=== PATIENT | male | born 1965 | race Caucasian/White ===

== ENCOUNTER 2017-05-16 09:53 | Emergency (ER) | payer BC ==
[~2017-05-16] VITALS: Ht 177.8 cm; Wt 86.0 kg
[2017-05-16 10:00] VITALS: BP 99/54; PULSE 82; RESP 17; TEMP 98.8; O2SAT 93
[2017-05-16] MEDS ORDERED: SODIUM CHLOR 0.9% 1000 ML INJ 1,000 ML IV ONE (10:11)
[2017-05-16] MEDS ORDERED: ONDANSETRON HCL 4 MG/2 ML VIAL IVP ONE (10:15)
[2017-05-16] MEDS ORDERED: SODIUM CHLORIDE 0.9% FLUSH 10 ML FLUSH IVF PRN (10:15)
--- NOTE | 2017-05-16 10:30 | RADRPT ---
EXAM DATE/TIME: 05/16/2017 10:14 [facility] COMPARISON: No previous studies available for comparison. INDICATIONS : Syncope at work MEDICAL HISTORY : None. SURGICAL HISTORY : None. ENCOUNTER: Initial ACUITY: 2 days PAIN SCORE: 2/10 LOCATION: Bilateral chest FINDINGS: Slight prominence of the right perihilar region likely due to overlapping vascular shadows. Cardiomed iastinal contours within normal limits. Bony thorax is intact. CONCLUSION: 1. Mild right perihilar prominence likely due to overlapping pulmonary vessels. This can be further e valuated on already requested chest CT exam. Mk Batista MD on May 16, 2017 at 10:26 Board Certified Radiologist. This report was verified electronically.
[2017-05-16 11:24] LABS: AUTOMATED NEUTROPHIL # 5.9 TH/MM3 (1.8-7.7); BASOPHIL % 0.1 % (0.0-2.0); HEMATOCRIT 31.6 % (39.0-51.0); HEMOGLOBIN 10.3 GM/DL (13.0-17.0); LYMPH % 7.3 % (9.0-44.0); LYMPHOCYTE # 0.5 TH/MM3 (1.0-4.8); MEAN CORPUSCULAR HEMOGLOBIN 19.9 PG (27.0-34.0); MEAN CORPUSCULAR HGB CONC 32.5 % (32.0-36.0); MEAN PLATELET VOLUME 9.1 FL (7.0-11.0); MONO % 6.8 % (0.0-8.0); MONOCYTE # 0.5 TH/MM3 (0-0.9); NEUT % 85.8 % (16.0-70.0); PLATELET COUNT 148 TH/MM3 (150-450); RED BLOOD COUNT 5.18 MIL/MM3 (4.50-5.90); RED CELL DISTRIBUTION WIDTH 15.6 % (11.6-17.2); WHITE BLOOD COUNT 6.8 TH/MM3 (4.0-11.0)
[2017-05-16] MEDS ORDERED: IOHEXOL 350 MG/ML 10 ML VIAL (for RAD DIAG) IVCONTRAST ONE (11:28)
--- NOTE | 2017-05-16 11:31 | RADRPT ---
EXAM DATE/TIME: 05/16/2017 11:08 [facility] COMPARISON: No previous studies available for comparison. INDICATIONS : Dizziness. RADIATION DOSE: 56.35 CTDIvol (mGy) ; Tabletop CT Head MEDICAL HISTORY : None SURGICAL HISTORY : Tonsillectomy. ENCOUNTER: Initial ACUITY: 1 day PAIN SCALE: 0/10 LOCATION: cranial TECHNIQUE: Multiple contiguous axial images were obtained of the head. Using automated exposure control and adj ustment of the mA and/or kV according to patient size, radiation dose was kept as low as reasonably a chievable to obtain optimal diagnostic quality images. DICOM format image data is available electro nically for review and comparison. FINDINGS: CEREBRUM: The ventricles are normal for age. No evidence of midline shift, mass lesion, hemorrhage or acute in farction. No extra-axial fluid collections are seen. POSTERIOR FOSSA: The cerebellum and brainstem are intact. The 4th ventricle is midline. The cerebellopontine angle i s unremarkable. EXTRACRANIAL: The visualized portion of the orbits is intact. There is a small air-fluid level in left maxillary si nus. SKULL: The calvaria is intact. No evidence of skull fracture. CONCLUSION: 1. No acute hemorrhage or mass effect. 2. Small air-fluid level in the left maxillary sinus which could indicate acute sinusitis. Kai Beth MD on May 16, 2017 at 11:28 Board Certified Radiologist. This report was verified electronically.
[2017-05-16 11:33] LABS: BICARBONATE 26.3 MEQ/L (21.0-32.0); BLOOD UREA NITROGEN 22 MG/DL (7-18); CALCIUM 7.9 MG/DL (8.5-10.1); CHLORIDE 100 MEQ/L (98-107); CREATININE 1.41 MG/DL (0.60-1.30); GLOMERULAR FILTRATION RATE 52 ML/MIN (>89); GLUCOSE,RANDOM 133 MG/DL (74-106); SODIUM (NA) 134 MEQ/L (136-145)
[2017-05-16 11:36] LABS: TROPONIN I LESS THAN 0.02 NG/ML (0.02-0.05)
--- NOTE | 2017-05-16 11:45 | RADRPT ---
EXAM DATE/TIME: 05/16/2017 11:07 [facility] COMPARISON: No previous studies available for comparison. INDICATIONS : Near syncopal episode. Cough. IV CONTRAST: 70 cc Omnipaque 350 (iohexol) IV RADIATION DOSE: 10.44 CTDIvol (mGy) MEDICAL HISTORY : None SURGICAL HISTORY : Tonsillectomy. ENCOUNTER: Initial ACUITY: 1 day PAIN SCALE: 0/10 LOCATION: Bilateral chest TECHNIQUE: Volumetric scanning of the chest was performed using a pulmonary embolism protocol MIP images were re constructed. Using automated exposure control and adjustment of the mA and/or kV according to patien t size, radiation dose was kept as low as reasonably achievable to obtain optimal diagnostic quality images. DICOM format image data is available electronically for review and comparison. Follow-up recommendations for detected pulmonary nodules are based at a minimum on nodule size and pa tient risk factors according to Fleischner Society Guidelines. FINDINGS: PULMONARY ARTERIES: No filling defects are seen in the pulmonary arteries through the segmental level. LUNGS: Bibasilar interstitial changes may represent some atelectasis. There are punctate, subcentimeter 3 mm nodules also in the right base. No confluent infiltrate. PLEURAE: There is no pleural thickening or pleural effusion. MEDIASTINUM: There is good visualization of the great vessels of the middle mediastinum. Bihilar prominence lymph nodes measuring up to 1.9 cm in diameter. Prominent pretracheal lymph nodes measuring upwards of 2.7 cm in diameter. Markedly dilated thoracic esophagus. Anatomic variant of the aortic arch with the lef t vertebral emanating directly from the arch. MUSCULOSKELETAL: Within normal limits for patient age. MISCELLANEOUS: The visualized upper abdominal organs demonstrate no acute abnormality. CONCLUSION: 1. No pulmonary embolus. 2. Bibasilar interstitial changes are probably atelectatic in nature although they are nonspecific 3- 4 mm nodules in the right base. 3. In addition, marked dilation of the esophageal lumen throughout its course. Diagnostic considerati ons include esophageal achalasia versus GE junction mass. If the latter is present, the nodules at th e lung base could represent metastatic disease. Endoscopy may be useful for further characterization. 4. Bihilar and prevascular prominent lymph nodes. Again, nonspecific. Diagnostic considerations inclu de lymphoma, metastatic disease or inflammatory processes such as sarcoid/reactive adenopathy. Outpat ient CT scan of the abdomen and pelvis can be considered to evaluate for additional areas of abnormal adenopathy. Manuelito Younger MD on May 16, 2017 at 11:31 Board Certified Radiologist. This report was verified electronically.
[2017-05-16 11:59] LABS: BANDS 35 % (0-6); LYMPHOCYTES 6 % (9-44); METAMYELOCYTES 3 % (0-1); MONOCYTES 3 % (0-8); NEUTROPHIL # MANUAL DIFF 6.2 TH/MM3 (1.8-7.7); POLYS (SEG NEUTROPHILS) 53 % (16-70)
[2017-05-16 12:00] LABS: ACANTHOCYTES OCC (NORMAL); OVALOCYTES 1+ (NORMAL); TEARDROP RBCS 1+ (NORMAL)
[2017-05-16 12:03] VITALS: BP 116/56; PULSE 77; RESP 17; O2SAT 96
[2017-05-16 12:04] VITALS: O2SAT 96
[2017-05-16 12:06] VITALS: BP_SYST 113; BP_SYST 116; BP_SYST 117; BP_DIAS 56; BP_DIAS 57; BP_DIAS 59
[2017-05-16] MEDS ORDERED: AZIT250T3 PO ×2 (12:38→16:36)
--- NOTE | 2017-05-16 12:39 | PD ---
HPI Chief Complaint: Syncope/Near-Syncope Time Seen by Provider: 10:11 Travel History International Travel<30 days: No Contact w/Intl Traveler<30days: No Traveled to known affect area: No History of Present Illness HPI In the ER the patient states he feels 52-year-old male arrives to the ER by EMS. 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 Prior to the time of loss of consciousness the patient's mentation and memory were intact and he reports no palpitations and dizziness lightheadedness chest pain or shortness of breath. Upon waking up he felt diaphoretic. Bystanders deny any seizure-like activity. The patient reports the past several days he's had cough congestion and URI symptoms. He denies any drug alcohol abuse. He denies any significant past medical history however has not been following with primary care provider due to insurance however insurance was just recently reinstated. PFSH Past Surgical History Tonsillectomy: Yes Social History Alcohol Use: No Tobacco Use: No Substance Use: No Allergies-Medications (Allergen,Severity, Reaction): Coded Allergies: Penicillins (Verified Allergy, Unknown, 05/16/17) Reported Meds & Prescriptions Reported Meds & Active Scripts Active Azithromycin 250 Mg Tab 250 Mg PO DIRECTED Take 2 tabs (500 mg) on day 1 then 1 tab daily x 4 days. Review of Systems Except as stated in HPI: all other systems reviewed are Neg General / Constitutional: Positive: Fever Respiratory: Positive: Cough Physical Exam Narrative GENERAL: 52-year-old male well-nourished well-developed speaking full sentences SKIN: Warm and dry. HEAD: Atraumatic. Normocephalic. EYES: Pupils equal and round. No scleral icterus. No injection or drainage. ENT: No nasal bleeding or discharge. Mucous membranes pink and moist. NECK: Trachea midline. No JVD. CARDIOVASCULAR: Regular rate and rhythm. RESPIRATORY: Occasional coarse breath sounds at the bases. GASTROINTESTINAL: Abdomen soft, non-tender, nondistended. Hepatic and splenic margins not palpable. MUSCULOSKELETAL: Extremities without clubbing, cyanosis, or edema. No obvious deformities. NEUROLOGICAL: Awake and alert. No obvious cranial nerve deficits. Motor grossly within normal limits. Five out of 5 muscle strength in the arms and legs. Normal speech. PSYCHIATRIC: Appropriate mood and affect; insight and judgment normal. Data Data Last Documented VS Vital Signs Date Time Temp Pulse Resp B/P (MAP) Pulse Ox O2 Delivery O2 Flow Rate FiO2 05/16/17 12:06 79 116/56 (76) 77 117/59 (78) 80 113/57 (75) 05/16/17 12:04 96 Room Air 05/16/17 12:03 17 05/16/17 10:00 98.8 VS reviewed Orders Orders Electrocardiogram (05/16/17 10:11) Basic Metabolic Panel (Bmp) (05/16/17 10:11) Complete Blood Count With Diff (05/16/17 10:11) Magnesium (Mg) (05/16/17 10:11) Ckmb (Isoenzyme) Profile (05/16/17 10:11) Troponin I (05/16/17 10:11) Chest, Single Ap (05/16/17 10:11) Ct Brain W/O Iv Contrast(Rout) (05/16/17 10:11) Ecg Monitoring (05/16/17 10:11) Iv Access Insert/Monitor (05/16/17 10:11) Oximetry (05/16/17 10:11) Oxygen Administration (05/16/17 10:11) Ondansetron Inj (Zofran Inj) (05/16/17 10:15) Sodium Chloride 0.9% Flush (Ns Flush) (05/16/17 10:15) Sodium Chlor 0.9% 1000 Ml Inj (Ns 1000 M (05/16/17 10:11) Orthostatic Vital Signs (05/16/17 10:11) Ct Pulmonary Angiogram (05/16/17 10:11) Iohexol 350 Inj (Omnipaque 350 Inj) (05/16/17 11:28) CKMB (05/16/17 10:20) CKMB% (05/16/17 10:20) Ed Discharge Order (05/16/17 12:39) Labs Laboratory Tests Test 05/16/17 10:20 White Blood Count 6.8 TH/MM3 Red Blood Count 5.18 MIL/MM3 Hemoglobin 10.3 GM/DL Hematocrit 31.6 % Mean Corpuscular Volume 61.0 FL Mean Corpuscular Hemoglobin 19.9 PG Mean Corpuscular Hemoglobin Concent 32.5 % Red Cell Distribution Width 15.6 % Platelet Count 148 TH/MM3 Mean Platelet Volume 9.1 FL Neutrophils (%) (Auto) 85.8 % Lymphocytes (%) (Auto) 7.3 % Monocytes (%) (Auto) 6.8 % Eosinophils (%) (Auto) 0.0 % Basophils (%) (Auto) 0.1 % Neutrophils # (Auto) 5.9 TH/MM3 Lymphocytes # (Auto) 0.5 TH/MM3 Monocytes # (Auto) 0.5 TH/MM3 Eosinophils # (Auto) 0.0 TH/MM3 Basophils # (Auto) 0.0 TH/MM3 CBC Comment AUTO DIFF Differential Total Cells Counted 100 Neutrophils % (Manual) 53 % Band Neutrophils % 35 % Lymphocytes % 6 % Monocytes % 3 % Neutrophils # (Manual) 6.2 TH/MM3 Metamyelocytes 3 % Differential Comment FINAL DIFF MANUAL Platelet Estimate LOW Platelet Morphology Comment NORMAL Tear Drop Cells 1+ Ovalocytes 1+ Acanthocytes OCC Keratocytes Blood Urea Nitrogen 22 MG/DL Creatinine 1.41 MG/DL Random Glucose 133 MG/DL Calcium Level 7.9 MG/DL Magnesium Level 2.0 MG/DL Sodium Level 134 MEQ/L Potassium Level 3.6 MEQ/L Chloride Level 100 MEQ/L Carbon Dioxide Level 26.3 MEQ/L Anion Gap 8 MEQ/L Estimat Glomerular Filtration Rate 52 ML/MIN Total Creatine Kinase 143 U/L Creatine Kinase MB 0.7 NG/ML Troponin I LESS THAN 0.02 NG/ML MDM Medical Decision Making Medical Screen Exam Complete: Yes Emergency Medical Condition: Yes Medical Record Reviewed: Yes Differential Diagnosis Arrhythmia, infection, anemia, PE, intracranial disease Narrative Course CBC & BMP Diagram 05/16/17 10:20 Calcium Level 7.9 L, Magnesium Level 2.0 The troponin is 0.02 EKG shows sinus rhythm at a rate 83 normal axis intervals no suggestion of ischemic injury pattern Last Impressions Head CT 05/16/17 1011 Signed Impressions: Service Date/Time: Tuesday, May 16, 2017 11:08 - CONCLUSION: 1. No acute hemorrhage or mass effect. 2. Small air-fluid level in the left maxillary sinus which could indicate acute sinusitis. Kai Beth MD Chest X-Ray 05/16/17 1011 Signed Impressions: Service Date/Time: Tuesday, May 16, 2017 10:14 - CONCLUSION: 1. Mild right perihilar prominence likely due to overlapping pulmonary vessels. This can be further evaluated on already requested chest CT exam. Mk Batista MD CT Angiography 05/16/17 1011 Signed Impressions: Service Date/Time: Tuesday, May 16, 2017 11:07 - CONCLUSION: 1. No pulmonary embolus. 2. Bibasilar interstitial changes are probably atelectatic in nature although they are nonspecific 3-4 mm nodules in the right base. 3. In addition, marked dilation of the esophageal lumen throughout its course. Diagnostic considerations include esophageal achalasia versus GE junction mass. If the latter is present, the nodules at the lung base could represent metastatic disease. Endoscopy may be useful for further characterization. 4. Bihilar and prevascular prominent lymph nodes. Again, nonspecific. Diagnostic considerations include lymphoma, metastatic disease or inflammatory processes such as sarcoid/reactive adenopathy. Outpatient CT scan of the abdomen and pelvis can be considered to evaluate for additional areas of abnormal adenopathy. Manuelito Younger MD The CT the lung abnormalities are noted. Sclerae reflect an infectious process given the bandemia and the patient's complaints of cough. Azithromycin prescribed. He is quite well-appearing overall. We had a jamie discussion about the potential diagnosis of cancer and the patient has assured me he will expeditiously follow up with Dr. Mac. Return precautions discussed. Patient agreeable with plan. Diagnosis Primary Impression: Pneumonia Qualified Codes: J18.9 - Pneumonia, unspecified organism Additional Impressions: Syncope and collapse Lymphadenopathy Referrals: Andry Mac MD Med/Other Pt SpecificInfo: Prescription(s) given Scripts Azithromycin (Azithromycin) 250 Mg Tab 250 MG PO DIRECTED for Infection, #6 TAB 0 Refills Take 2 tabs (500 mg) on day 1 then 1 tab daily x 4 days. Prov: Don Reyna MD 05/16/17 Disposition: 01 DISCHARGE HOME Condition: Stable Don Reyna MD May 16, 2017 12:39
--- NOTE | 2017-05-16 14:12 | EKG ---
Date Performed: 05/16/2017 Time Performed: 10:03:02 PTAGE: 52 years EKG: Sinus rhythm NORMAL ECG NO PREVIOUS TRACING DOCTOR: Víctor Livingston Interpretating Date/Time 05/16/2017 14:11:54
== END 2017-05-16 14:01 | disposition home or self-care (01) ==
LOC: NEPE 09:53
DX: J18.9 Pneumonia, unspecified organism (principal); R55 Syncope and collapse; R59.1 Generalized enlarged lymph nodes; R91.8 Other nonspecific abnormal finding of lung field
CPT/HCPCS: 70450; 71045; 71275; 80048; 82550; 82552; 83735; 84484; 85007; 85027; 93005; 96374; 99285; J2405; J7030; Q9967